=== PATIENT | female | born 1985 | race Caucasian/White ===

== ENCOUNTER 2018-03-19 09:55 | Emergency (ER) | payer MEDICAID ==
[~2018-03-19] VITALS: Ht 167.6 cm; Wt 72.0 kg
[2018-03-19 10:01] VITALS: BP 112/88
[2018-03-19] MEDS ORDERED: DEXAMETHASONE 4 MG TABLET ONE (10:29)
[2018-03-19] MEDS ORDERED: ONDANSETRON ODT 4 MG PO ONE (10:30)
[2018-03-19] MEDS ORDERED: DEXAMETHASONE 4 MG TABLET PO ONE (10:30)
[2018-03-19] MEDS ORDERED: ONDANSETRON ODT 4 MG ONE (10:30)
--- NOTE | 2018-03-19 10:34 | NUR ---
pt medicated per order and off to x ray now.
== END 2018-03-19 10:57 | disposition home or self-care (01) ==
LOC: ED 10:46
DX: J01.00 Acute maxillary sinusitis, unspecified (principal); F17.210 Nicotine dependence, cigarettes, uncomplicated
CPT/HCPCS: 71046; 99283; Q0162

== ENCOUNTER 2018-03-22 15:33 | Inpatient (IN) | payer MEDICAID ==
[~2018-03-22] VITALS: Ht 165.1 cm; Wt 77.5 kg
[2018-03-22] MEDS ORDERED: FLUO10CA13 PO (16:11)
[2018-03-22] MEDS ORDERED: ONDANSETRON ODT 4 MG ONE (16:15)
--- NOTE | 2018-03-22 16:19 | NUR ---
FIRST CONTACT WITH PT. PT C/O N/V/COUGH/SORE THROAT FROM YESTERDAY AND D FROM TODAY IN THE MORNING WITH DEVI/BILATERAL U&L ABD PAIN. PT STATES "I'VE BEEN SICK FOR 1 MONTH." PT DENIES FEVER. PT AOX4. RESPS EVEN AND UNLABORED. PT HAS IUD. PT LAST MEAL WAS YESTERDAY. SPO2 AND BP MONITORS IN PLACE. CALL LIGHT WITHIN REACH.
--- NOTE | 2018-03-22 16:24 | NUR ---
PT AMB TO BR WITH STEADY GAIT FOR UA. UA SENT.
[2018-03-22 16:25] LABS: BASOPHILS # (AUTO) 0.01 x10^3/uL (0-0.1); BASOPHILS % (AUTO) 0 % (0-1); EOSINOPHILS % (AUTO) 0 % (1-7); LYMPHOCYTES # (AUTO) 0.54 x10^3/uL (1-3.4); LYMPHOCYTES % (AUTO) 7 % (22-44); MD NO; MEAN CORPUSCULAR HEMOGLOBIN 33.3 pg (27.0-34.8); MEAN CORPUSCULAR HGB CONC 33.4 g/dL (32.4-35.8); MEAN CORPUSCULAR VOLUME 99.8 fL (80-100); MONOCYTES # (AUTO) 0.56 x10^3/uL (0.2-0.8); MONOCYTES % (AUTO) 7 % (2-9); NEUTROPHILS # (AUTO) 6.57 x10^3/uL (1.8-6.8); NEUTROPHILS % (AUTO) 86 % (42-75); PLATELET COUNT 192 x10^3/uL (130-400); RED BLOOD COUNT 4.93 x10^6/uL (3.82-5.3); RED CELL DISTRIBUTION WIDTH 13.6 % (9.6-15.2)
[2018-03-22] MEDS ORDERED: ONDANSETRON ODT 4 MG PO ONE (16:30)
[2018-03-22 16:32] LABS: ALANINE AMINOTRANSFERASE 121 U/L (12-78); ALBUMIN 3.8 g/dL (3.4-5.0); ANION GAP 9 mmol/L (5-15); CALCIUM 8.7 mg/dL (8.5-10.1); CHLORIDE 100 mmol/L (98-107); CREATININE 0.86 mg/dL (0.55-1.02)
[2018-03-22 16:36] LABS: ALKALINE PHOSPHATASE 85 U/L (45-117); BILIRUBIN,TOTAL 1.2 mg/dL (0.2-1.0); TOTAL PROTEIN 7.1 g/dL (6.4-8.2)
[2018-03-22 16:37] LABS: MICROSCOPIC INDICATED
[2018-03-22 16:44] LABS: CULTURE INDICATED? NO
[2018-03-22] MEDS ORDERED: SODIUM CHLORIDE 0.9% 1,000 ML IV ONE (16:44)
[2018-03-22] MEDS ORDERED: ONDANSETRON 2MG/ML, 2ML ONE (16:56)
[2018-03-22] MEDS ORDERED: MORPHINE SULFATE 4 MG/ML, 1ML ONE (16:56)
[2018-03-22] MEDS ORDERED: MORPHINE SULFATE 4 MG/ML, 1ML IVPush PRN (17:00)
[2018-03-22] MEDS ORDERED: SODIUM CHLORIDE 0.9% 1,000ML IVBOLUS ONE (17:00)
--- NOTE | 2018-03-22 17:00 | NUR ---
US AT BEDSIDE. PT STATES "ZOFRAN DIDN'T WORK AND I VOMITTED AGAIN." EDMD NOTIFIED. BP AND SPO2 MONITORS IN PLACE. CALL LIGHT WITHIN REACH.
[2018-03-22] MEDS ORDERED: LORazepam 2 MG/ML, 1ML IV PRN ×5 (17:30)
[2018-03-22] MEDS ORDERED: POLYETHYLENE GLYCOL 17 GM PACKET PO PRN (17:30)
[2018-03-22] MEDS: PANTOPRAZOLE 40 MG IV IVPush SCH ×2 (17:30)
[2018-03-22] MEDS ORDERED: LORazepam 1MG TABLET PO PRN ×4 (17:30)
[2018-03-22] MEDS ORDERED: ONDANSETRON 2MG/ML, 2ML IVPush PRN (17:30)
[2018-03-22] MEDS ORDERED: LABETALOL 5MG/ML, 20ML IVPush PRN (17:30)
--- NOTE | 2018-03-22 17:30 | NUR ---
PT MEDICATED PER EMAR, REPORTS PAIN RELIEVED. PT A&O, RESPS EVEN AND UNLABORED. NSR ON GETTER FILLER.
[2018-03-22 17:42] LABS: FREE T4 (FREE THYROXINE) 0.89 ng/dL (0.76-1.46)
[2018-03-22] MEDS ORDERED: OMNIPAQUE 350 MG/ML, 100ML BOTTLE ONE (17:45)
[2018-03-22] MEDS ORDERED: ONDANSETRON 2MG/ML, 2ML IVPush ONE (18:00)
--- NOTE | 2018-03-22 18:10 | NUR ---
UPON RETURN FROM CT, PT REPORTS CHEST PRESSURE AND ANXIETY THAT RESOLVED SPONTANEOUSLY WITHIN SEVERAL MINUTES. PIV SITE CDI, NO REDNESS/EDEMA TO PIV SITE. HOSPITALIST CHENCHO REYNOLDS NOTIFIED. NO ORDERS GIVEN. VSS. NSR ON CEMENT SACK BREAKER. PT IS IN NO ACUTE DISTRESS AT THIS TIME. N/V HAS RESOLVED.
--- NOTE | 2018-03-22 18:15 | NUR ---
SBAR REPORT GIVEN TO CACHORRO [place]. ALL QUESTIONS ANSWER.
[2018-03-22 19:18] VITALS: BP 136/94
[2018-03-22] MEDS: POTASSIUM CHLORIDE 20 MEQ, MAGNESIUM SULFATE 1 GM, FOLIC ACID 1 MG, THIAMINE 200 MG, MV... IV SCH (21:43)
[2018-03-22] MEDS: morphine SULFATE 10 MG/ML, 1ML IVPush PRN (21:55)
[2018-03-23 01:05] VITALS: BP 136/94
[2018-03-23] MEDS ORDERED: ALPR0.5T PO (01:27)
[2018-03-23 01:29] VITALS: BP 131/86
[2018-03-23] MEDS: PANTOPRAZOLE 40 MG IV IVPush SCH ×3 (05:24→14:22)
[2018-03-23] MEDS: morphine SULFATE 10 MG/ML, 1ML IVPush PRN ×3 (05:29→21:29)
[2018-03-23 05:51] LABS: BASOPHILS # (AUTO) 0.01 x10^3/uL (0-0.1); BASOPHILS % (AUTO) 0 % (0-1); EOSINOPHILS # (AUTO) 0.03 x10^3/uL (0-0.4); EOSINOPHILS % (AUTO) 1 % (1-7); LYMPHOCYTES # (AUTO) 0.88 x10^3/uL (1-3.4); LYMPHOCYTES % (AUTO) 17 % (22-44); MD NO; MEAN CORPUSCULAR VOLUME 100.2 fL (80-100); MEAN PLATELET VOLUME 7.4 fL (7.4-10.4); MONOCYTES # (AUTO) 0.53 x10^3/uL (0.2-0.8); MONOCYTES % (AUTO) 10 % (2-9); NEUTROPHILS # (AUTO) 3.87 x10^3/uL (1.8-6.8); NEUTROPHILS % (AUTO) 73 % (42-75); PLATELET COUNT 144 x10^3/uL (130-400); RED BLOOD COUNT 4.45 x10^6/uL (3.82-5.3); RED CELL DISTRIBUTION WIDTH 14.2 % (9.6-15.2)
[2018-03-23 06:02] LABS: ALBUMIN 3.2 g/dL (3.4-5.0); ANION GAP 8 mmol/L (5-15); CHLORIDE 105 mmol/L (98-107)
[2018-03-23 06:24] LABS: ALANINE AMINOTRANSFERASE 83 U/L (12-78); ALKALINE PHOSPHATASE 69 U/L (45-117); CREATININE 0.63 mg/dL (0.55-1.02); TOTAL PROTEIN 5.9 g/dL (6.4-8.2)
[2018-03-23 07:23] VITALS: BP 138/84
[2018-03-23] MEDS: LORazepam 0.5MG TABLET PO PRN ×2 (08:14→11:55)
[2018-03-23] MEDS: FLUOXETINE 10 MG CAP PO SCH (08:14)
[2018-03-23] MEDS: D5%-0.45% NACL 1,000 ML IV SCH ×2 (08:15→16:04)
[2018-03-23] MEDS: SENNA/DOCUSATE TABLET PO SCH (08:15)
[2018-03-23] MEDS ORDERED: POTASSIUM CHLORIDE 20 MEQ TAB.ER.PRT PO ONE ×2 (08:30→11:30)
[2018-03-23] MEDS: HYDROcodone/APAP 5/325 TABLET PO PRN ×3 (10:49→23:32)
[2018-03-23] MEDS: ONDANSETRON ODT 4 MG PO PRN ×2 (11:55→17:04)
[2018-03-23] MEDS ORDERED: PANTOPRAZOLE 80 MG in SODIUM CHLORIDE 0.9% 50 ML IV ONE (13:00)
[2018-03-23] MEDS ORDERED: PANTOPRAZOLE 80 MG in SODIUM CHLORIDE 0.9% 100 ML IV SCH (13:15)
[2018-03-23 13:17] VITALS: BP 134/73
[2018-03-23 13:33] LABS: THYROID STIMULATING HORMONE 4.57 mIU/L (0.358-3.740)
[2018-03-23] MEDS: SUCRALFATE 1 GM/10 ML UDC PO SCH ×3 (14:22→21:29)
[2018-03-23] MEDS ORDERED: LORazepam 1MG TABLET PO PRN (16:30)
[2018-03-23 21:10] VITALS: BP_SYST 145; BP_DIAS 4; BP_DIAS 74
[2018-03-23] MEDS: POTASSIUM CHLORIDE 20 MEQ, MAGNESIUM SULFATE 1 GM, FOLIC ACID 1 MG, THIAMINE 200 MG, MV... IV SCH (21:29)
[2018-03-24] MEDS: PANTOPRAZOLE 40 MG IV IVPush SCH ×2 (02:26→14:13)
[2018-03-24] MEDS: morphine SULFATE 10 MG/ML, 1ML IVPush PRN (02:34)
[2018-03-24 02:58] VITALS: BP 128/89
[2018-03-24] MEDS: D5%-0.45% NACL 1,000 ML IV SCH ×2 (05:39→13:59)
[2018-03-24 05:54] LABS: BASOPHILS # (AUTO) 0.02 x10^3/uL (0-0.1); BASOPHILS % (AUTO) 0 % (0-1); EOSINOPHILS # (AUTO) 0.13 x10^3/uL (0-0.4); EOSINOPHILS % (AUTO) 3 % (1-7); LYMPHOCYTES # (AUTO) 0.88 x10^3/uL (1-3.4); LYMPHOCYTES % (AUTO) 20 % (22-44); MD NO; MEAN CORPUSCULAR HEMOGLOBIN 34.2 pg (27.0-34.8); MEAN CORPUSCULAR HGB CONC 33.9 g/dL (32.4-35.8); MEAN CORPUSCULAR VOLUME 100.8 fL (80-100); MEAN PLATELET VOLUME 7.5 fL (7.4-10.4); MONOCYTES % (AUTO) 9 % (2-9); NEUTROPHILS # (AUTO) 3.01 x10^3/uL (1.8-6.8); NEUTROPHILS % (AUTO) 68 % (42-75); PLATELET COUNT 143 x10^3/uL (130-400); RED BLOOD COUNT 4.35 x10^6/uL (3.82-5.3); RED CELL DISTRIBUTION WIDTH 14.4 % (9.6-15.2)
[2018-03-24 06:09] LABS: CHLORIDE 108 mmol/L (98-107)
[2018-03-24 06:36] VITALS: BP 129/89
[2018-03-24 06:38] LABS: ALANINE AMINOTRANSFERASE 78 U/L (12-78); ALBUMIN 3.2 g/dL (3.4-5.0); ALKALINE PHOSPHATASE 66 U/L (45-117); ANION GAP 5 mmol/L (5-15); BILIRUBIN,TOTAL 0.9 mg/dL (0.2-1.0); CALCIUM 8.1 mg/dL (8.5-10.1); CREATININE 0.68 mg/dL (0.55-1.02)
[2018-03-24] MEDS: SENNA/DOCUSATE TABLET PO SCH (08:29)
[2018-03-24] MEDS: HYDROcodone/APAP 5/325 TABLET PO PRN ×3 (08:29→23:23)
[2018-03-24] MEDS: SUCRALFATE 1 GM/10 ML UDC PO SCH ×4 (08:29→20:12)
[2018-03-24] MEDS: FLUOXETINE 10 MG CAP PO SCH (08:29)
[2018-03-24] MEDS: ONDANSETRON ODT 4 MG PO PRN (10:38)
[2018-03-24 12:13] VITALS: BP 117/79
[2018-03-24] MEDS ORDERED: KETOROLAC 30 MG/1 ML ONE (13:55)
[2018-03-24] MEDS: KETOROLAC 30 MG/1 ML IVPush PRN ×2 (13:59→20:12)
[2018-03-24] MEDS: SODIUM CHLORIDE 0.45% 1,000 ML IV SCH (18:02)
[2018-03-24] MEDS: METOPROLOL TARTRATE 25 MG TABLET PO SCH (18:03)
[2018-03-24 20:00] VITALS: BP 141/93
[2018-03-24] MEDS: POTASSIUM CHLORIDE 20 MEQ, MAGNESIUM SULFATE 1 GM, FOLIC ACID 1 MG, THIAMINE 200 MG, MV... IV SCH (20:12)
[2018-03-24] MEDS ORDERED: KETOROLAC 30 MG/1 ML IVPush SCH (21:00)
[2018-03-25 02:00] VITALS: BP 146/90
[2018-03-25] MEDS: PANTOPRAZOLE 40 MG IV IVPush SCH ×2 (03:02→14:05)
[2018-03-25 06:02] LABS: BASOPHILS # (AUTO) 0.02 x10^3/uL (0-0.1); BASOPHILS % (AUTO) 0 % (0-1); EOSINOPHILS # (AUTO) 0.09 x10^3/uL (0-0.4); EOSINOPHILS % (AUTO) 2 % (1-7); LYMPHOCYTES # (AUTO) 0.59 x10^3/uL (1-3.4); LYMPHOCYTES % (AUTO) 13 % (22-44); MD NO; MEAN CORPUSCULAR HEMOGLOBIN 34.1 pg (27.0-34.8); MEAN CORPUSCULAR VOLUME 100.4 fL (80-100); MEAN PLATELET VOLUME 7.9 fL (7.4-10.4); MONOCYTES # (AUTO) 0.55 x10^3/uL (0.2-0.8); MONOCYTES % (AUTO) 12 % (2-9); NEUTROPHILS # (AUTO) 3.45 x10^3/uL (1.8-6.8); NEUTROPHILS % (AUTO) 73 % (42-75); PLATELET COUNT 141 x10^3/uL (130-400); RED BLOOD COUNT 4.28 x10^6/uL (3.82-5.3); RED CELL DISTRIBUTION WIDTH 13.8 % (9.6-15.2)
[2018-03-25 06:14] LABS: CHLORIDE 106 mmol/L (98-107)
[2018-03-25 06:19] LABS: ALANINE AMINOTRANSFERASE 67 U/L (12-78); ALBUMIN 3.3 g/dL (3.4-5.0); ALKALINE PHOSPHATASE 70 U/L (45-117); ANION GAP 5 mmol/L (5-15); BILIRUBIN,TOTAL 0.6 mg/dL (0.2-1.0); CALCIUM 8.7 mg/dL (8.5-10.1); CREATININE 0.67 mg/dL (0.55-1.02); TOTAL PROTEIN 6.3 g/dL (6.4-8.2)
[2018-03-25 06:36] VITALS: BP 154/95
[2018-03-25] MEDS: SUCRALFATE 1 GM/10 ML UDC PO SCH ×2 (08:39→12:01)
[2018-03-25] MEDS: SENNA/DOCUSATE TABLET PO SCH (08:39)
[2018-03-25] MEDS: FLUOXETINE 10 MG CAP PO SCH (08:39)
[2018-03-25] MEDS: METOPROLOL TARTRATE 25 MG TABLET PO SCH (08:40)
[2018-03-25] MEDS: SODIUM CHLORIDE 0.45% 1,000 ML IV SCH (10:04)
[2018-03-25 12:02] VITALS: BP 153/98
[2018-03-25] MEDS ORDERED: METO25TA35 PO (14:53)
[2018-03-25] MEDS ORDERED: SUCR1ORA5 PO (14:53)
[2018-03-25] MEDS ORDERED: PANT40TA5 PO (14:53)
== END 2018-03-25 16:30 | disposition home or self-care (01) | DRG 439 ==
LOC: ED 16:33 → EDIP 17:10 → 4EST 18:53 → DCLOUNGE 03-25 16:22
PROVIDERS: ADMIT Hospitalist; ATTEND Hospitalist
DX: K85.20 Alcohol induced acute pancreatitis without necrosis or infection (principal); R17 Unspecified jaundice; I47.1 Supraventricular tachycardia; F10.231 Alcohol dependence with withdrawal delirium; K29.80 Duodenitis without bleeding; K29.70 Gastritis, unspecified, without bleeding; F17.210 Nicotine dependence, cigarettes, uncomplicated; F32.9 Major depressive disorder, single episode, unspecified; F41.9 Anxiety disorder, unspecified; R74.0 Nonspecific elevation of levels of transaminase and lactic acid dehydrogenase [LDH]; E86.0 Dehydration; Z80.52 Family history of malignant neoplasm of bladder; Z79.899 Other long term (current) drug therapy; Z80.9 Family history of malignant neoplasm, unspecified
CPT/HCPCS: 36415; 99285; J7042; 74177; 76700; 80053; 80307; 81001; 82140; 82570; 82607; 83690; 83735; 84100; 84439; 84443; 84703; 85025; 86677; 96374; 96375; G0378; J1885; J2405; J3411; J3475; J3480; Q0162; Q9967; C9113; J2060; J2270; J7030